=== PATIENT | male | born 2000 | race African-American/Black ===

== ENCOUNTER 2020-05-16 10:51 | Emergency (ER) | payer BC, SELFPAY ==
--- NOTE | 2020-05-16 11:51 | RAD REPORT ---
EXAM DESCRIPTION: RAD - Ankle Right 3 View - 05/16/2020 11:32 am CLINICAL HISTORY: Right ankle pain FINDINGS: No fracture or dislocation is seen. Lateral soft tissue swelling
--- OUTSIDE RECORDS SUMMARY | 2020-05-16 12:08 | XMS REPORT | Continuity of Care Document ---
:2000 Author Organization [facility] Address [address] [place] [address] Dr. Booth. [address] [place] [id number] Care Team Providers Name Role Phone DR JOSE Attending Clinician Unavailable DR JOSE Admitting Clinician Unavailable Problems This patient has no known problems. Allergies, Adverse Reactions, Alerts This patient has no known allergies or adverse reactions. Medications This patient has no known medications. Procedures This patient has no known procedures. Encounters Start End Encounter Admission Attending Care Care Encounter Source Date/Time Date/Time Type Type Clinicians Facility Department ID 2019-12-16 2019-12-16 Emergency E NAS GARCIA [facility] [id number] [facility] 11:59:00 13:00:00 [facility] Results This patient has no known results.
--- NOTE | 2020-05-16 12:53 | EDPHYS ---
Physician Documentation [facility] Name: Vandana Wood Age: 20 yrs Sex: Male : 2000 Arrival Date: 05/16/2020 Time: 10:52 Bed 6 Private MD: ED Physician Pawan Kahn HPI: 05/16 11:05 This 20 yrs old Black Male presents to ER via Wheelchair with complaints of Ankle jmm Injury. 11:05 Onset: The symptoms/episode began/occurred acutely, just prior to arrival. Modifying jmm factors: The symptoms are alleviated by elevation of extremity, the symptoms are aggravated by weight bearing, movement. This is a 20 year old male with no chronic medical conditions that presents to the ED with complaints of right ankle pain beginning yesterday after twisting his ankle playing football. States pain is worse with weightbearing. . Historical: - Allergies: 11:01 No Known Allergies; ca1 - Home Meds: 11: None [Active]; ca1 - PMHx: 11: None; ca1 - PSHx: 11: None; ca1 - Immunization history:: Adult Immunizations up to date. - Social history:: Smoking status: Patient denies any tobacco usage or history of. ROS: 11:05 Constitutional: Negative for fever, chills, and weight loss, Cardiovascular: Negative jmm for chest pain, palpitations, and edema, Respiratory: Negative for shortness of breath, cough, wheezing, and pleuritic chest pain. 11:05 MS/extremity: Positive for injury or acute deformity, pain. 11:05 All other systems are negative. Exam: 11:05 Constitutional: This is a well developed, well nourished patient who is awake, alert, jmm and in no acute distress. Head/Face: atraumatic. Eyes: EOMI, no conjunctival erythema appreciated ENT: Moist Mucus Membranes Neck: Trachea midline, Supple Chest/axilla: Normal chest wall appearance and motion. Cardiovascular: Regular rate and rhythm. No edema appreciated Respiratory: Normal respirations, no respiratory distress appreciated Abdomen/GI: Non distended, soft Back: Normal ROM Skin: General appearance color normal 11:05 Neuro: Awake and alert, normal gait Psych: Behavior is normal, Mood is normal, Patient is cooperative and pleasant 11:05 Musculoskeletal/extremity: swelling noted to the right lateral ankle, no pain on palpation of the right 5th metatarsal, full dorsalis pylse compartments are soft, NVI. Vital Signs: 11:00 BP 133 / 71; Pulse 80; Resp 16 S; Temp 99.2(TE); Pulse Ox 98% on R/A; Weight 81.65 kg ca1 (R); Height 5 ft. 10 in. (177.80 cm) (R); Pain 5/10; 12:52 BP 120 / 93; Pulse 67; Resp 17; Temp 98.9; Pulse Ox 100% ; bp 11:00 Body Mass Index 25.83 (81.65 kg, 177.80 cm) ca1 MDM: 11:05 Patient medically screened. [facility] 12:51 Data reviewed: vital signs, nurses notes. Counseling: I had a detailed discussion with [facility] the patient and/or guardian regarding: the historical points, exam findings, and any diagnostic results supporting the discharge/admit diagnosis, radiology results, the need for outpatient follow up, to return to the emergency department if symptoms worsen or persist or if there are any questions or concerns that arise at home. ED course: Patient is advised to follow up with pcp for reevaluation. Patient is otherwise given strict return precautions. Patient understood and agrees with the plan of care. . 05/16 11:05 Order name: Ankle Right 3 View XRAY; Complete Time: 11:53 bp 05/16 11:53 Order name: Oliverio wrap-joint; Complete Time: 12:52 [facility] 05/16 12:26 Order name: Crutches; Complete Time: 12:52 [facility] Administered Medications: No medications were administered Disposition: 16:06 Co-signature as Attending Physician, Pawan Kahn MD. rn Disposition: 05/16/20 12:53 Discharged to Home. Impression: Sprain of ankle. - Condition is Stable. - Discharge Instructions: Ankle Sprain. - Medication Reconciliation Form, Thank You Letter, Antibiotic Education, Prescription Opioid Use form. - Follow up: Private Physician; When: 2 - 3 days; Reason: Recheck today's complaints, Continuance of care, Re-evaluation by your physician. Signatures: Dispatcher [employer] EDMS Kurt Gentile PA PA jmm Nieto, Roman, MD MD rn Peltier, Brian, RN RN bp Rosemarie Arora RN RN ca1 Corrections: (The following items were deleted from the chart) 13:02 12:53 05/16/2020 12:53 Discharged to Home. Impression: Sprain of ankle. Condition is bp Stable. Forms are Medication Reconciliation Form, Thank You Letter, Antibiotic Education, Prescription Opioid Use. Follow up: Private Physician; When: 2 - 3 days; Reason: Recheck today's complaints, Continuance of care, Re-evaluation by your physician. cherelle
--- NOTE | 2020-05-16 12:53 | ER ---
Nurse's Notes [facility] Name: Vandana Wood Age: 20 yrs Sex: Male : 2000 Arrival Date: 05/16/2020 Time: 10:52 Bed 6 Private MD: Diagnosis: Sprain of ankle Presentation: 05/16 11:00 Chief complaint: Patient states: Twisted R ankle last night. C/O R ankle pain, worst ca1 with weight bearing. Coronavirus screen: Proceed with normal triage. Patient denies a cough. Patient denies shortness of breath or difficulty breathing. Patient denies measured and/or subjective temperature greater than 100.4F prior to today's visit. Patient denies travel on a cruise ship or to a country the [facility] currently lists as an affected area. Patient denies contact with known and/or suspected case of COVID-19. Ebola Screen: Patient negative for fever greater than or equal to 101.5 degrees Fahrenheit, and additional compatible Ebola Virus Disease symptoms Patient denies exposure to infectious person. Patient denies travel to an Ebola-affected area in the 21 days before illness onset. No symptoms or risks identified at this time. Initial Sepsis Screen: Does the patient meet any 2 criteria? No. Patient's initial sepsis screen is negative. Does the patient have a suspected source of infection? No. Patient's initial sepsis screen is negative. Risk Assessment: Do you want to hurt yourself or someone else? Patient reports no desire to harm self or others. Onset of symptoms was May 16, 2020. 11:00 Method Of Arrival: Wheelchair ca1 11:00 Acuity: JAVON 4 ca1 Triage Assessment: 11:00 General: Appears in no apparent distress. uncomfortable, Behavior is calm, cooperative, bp appropriate for age. Pain: Complains of pain in anterior aspect of right ankle. EENT: No deficits noted. Neuro: No deficits noted. Cardiovascular: No deficits noted. Respiratory: No deficits noted. GI: No signs and/or symptoms were reported involving the gastrointestinal system. : No signs and/or symptoms were reported regarding the genitourinary system. Derm: No deficits noted. Musculoskeletal: Reports pain in right ankle. Historical: - Allergies: : No Known Allergies; ca1 - Home Meds: : None [Active]; ca1 - PMHx: 11:01 None; ca1 - PSHx: 11:01 None; ca1 - Immunization history:: Adult Immunizations up to date. - Social history:: Smoking status: Patient denies any tobacco usage or history of. Screenin:00 Abuse screen: Denies threats or abuse. Denies injuries from another. Nutritional bp screening: No deficits noted. Tuberculosis screening: No symptoms or risk factors identified. Fall Risk None identified. Assessment: 11:00 General: SEE TRIAGE NOTE. bp 12:52 Reassessment: PT D/C HOME AMBULATORY ON CRUTCHES, DX WITH R ANKLE SPRAIN. bp Vital Signs: 11:00 BP 133 / 71; Pulse 80; Resp 16 S; Temp 99.2(TE); Pulse Ox 98% on R/A; Weight 81.65 kg ca1 (R); Height 5 ft. 10 in. (177.80 cm) (R); Pain 5/10; 12:52 BP 120 / 93; Pulse 67; Resp 17; Temp 98.9; Pulse Ox 100% ; bp 11:00 Body Mass Index 25.83 (81.65 kg, 177.80 cm) ca1 ED Course: 10:52 Patient arrived in ED. ag5 10:54 Kurt Gentile PA is PHCP. [facility] 10:54 Pawan Kahn MD is Attending Physician. [facility] 10:58 Brian Kirby, NELLY is Primary Nurse. bp 11:00 Patient has correct armband on for positive identification. Bed in low position. Call bp light in reach. Side rails up X2. 11:01 Triage completed. ca1 11:01 Arm band placed on right wrist. ca1 11:28 Ankle Right 3 View XRAY In Process Unspecified. EDMS 12:52 Crutch training done. Oliverio wrap to right ankle. bp 12:53 No provider procedures requiring assistance completed. Patient did not have IV access bp during this emergency room visit. Administered Medications: No medications were administered Outcome: 12:53 Discharge ordered by . jmm 12:54 Discharged to home ambulatory, with crutches. bp 12:54 Condition: stable 12:54 Discharge instructions given to patient, Instructed on discharge instructions, follow up and referral plans. crutch walking, Demonstrated understanding of instructions, follow-up care, crutch walking. 13:02 Patient left the ED. bp Signatures: Dispatcher [employer] EDMS Mickail, Kurt, PA PA jmm Kofi, , RN RN bp Rosemarie Arora RN RN [facility] Nura Gupta [facility]
[2020-05-16 13:09] VITALS: BP 120/93; TEMP 98.9; O2SAT 100
== END 2020-05-16 13:02 | disposition home or self-care (01) ==
LOC: ER 10:51
DX: S93.401A Sprain of unspecified ligament of right ankle, initial encounter (principal); Y93.61 Activity, american tackle football; Y92.9 Unspecified place or not applicable
CPT/HCPCS: 99283

== ENCOUNTER 2020-06-20 14:35 | Emergency (ER) | payer SELFPAY ==
--- OUTSIDE RECORDS SUMMARY | 2020-06-20 14:37 | XMS REPORT | Continuity of Care Document ---
:2000 Author Organization [facility] t Address [address] [place] [address] Dr. Booth. [address] [place] [address] Care Team Providers Name Role Phone DR [...] ID 2019-12-16 2019-12-16 Emergency E [facility] [id number] 13:00:00 [facility] Results This patient has no known results.
--- NOTE | 2020-06-20 15:43 | ER ---
Nurse's Notes [facility] Name: Vandana Wood Age: 20 yrs Sex: Male : 2000 Arrival Date: 06/20/2020 Time: 14:39 Bed 28 Private MD: Diagnosis: Urethritis and urethral syndrome Presentation: 06/20 14:51 Chief complaint: Patient states: Sexual partner was diagnosed with chlamydia. Came to [facility] get checked and treated. No pain or major symptoms reported. Coronavirus screen: Client denies travel out of the [place] in the last 14 days. At this time, the client does not indicate any symptoms associated with coronavirus-19. Ebola Screen: Patient denies travel to an Ebola-affected area in the 21 days before illness onset. Initial Sepsis Screen: Does the patient meet any 2 criteria? No. Patient's initial sepsis screen is negative. Risk Assessment: Do you want to hurt yourself or someone else? Patient reports no desire to harm self or others. Onset of symptoms was June 20, 2020. 14:51 Method Of Arrival: Ambulatory [facility] 14:51 Acuity: JAVON 5 1 17:55 Initial Sepsis Screen: Does the patient have a suspected source of infection? No. ls4 Patient's initial sepsis screen is negative. Historical: - Allergies: 14:54 No Known Allergies; ll1 - PSHx: 14:54 right hand surgery; 1 - Immunization history:: Flu vaccine status is unknown. - Social history:: Smoking status: Patient denies any tobacco usage or history of. Patient uses alcohol, only on a social basis. Patient/guardian denies using street drugs. Screenin:30 Abuse screen: Denies threats or abuse. Denies injuries from another. ls4 15:30 Nutritional screening: No deficits noted. Tuberculosis screening: No symptoms or risk ls4 factors identified. Fall Risk None identified. Assessment: 15:30 Pain: Denies pain. ls4 15:30 General: Appears in no apparent distress. comfortable, Behavior is calm, cooperative. ls4 Neuro: No deficits noted. Cardiovascular: No deficits noted. Respiratory: No deficits noted. GI: No deficits noted. : No deficits noted. Vital Signs: 14:51 BP 135 / 88; Pulse 78; Resp 18; Temp 98.4; Pulse Ox 100% ; Weight 81.65 kg; Height 5 ll1 ft. 10 in. (177.80 cm); Pain 0/10; 17:56 BP 122 / 74; Pulse 72; Resp 16; Temp 98.4(O); Pulse Ox 99% on R/A; Pain 0/10; ls4 14:51 Body Mass Index 25.83 (81.65 kg, 177.80 cm) ll1 ED Course: 14:39 Patient arrived in ED. rg4 14:53 Triage completed. ll1 14:54 Patient placed Patient notified of wait time. ll1 15:30 No apparent distress. ls4 15:30 Patient has correct armband on for positive identification. Bed in low position. Call ls4 light in reach. Side rails up X 1. Pulse ox on. NIBP on. Verbal reassurance given. 15:30 No provider procedures requiring assistance completed. Patient did not have IV access ls4 during this emergency room visit. 15:40 Patient Not in lobby when called to ER room for eval. ll1 15:40 Patient Not in lobby when called to room for eval. ll1 16:09 Chalo Robert MD is Attending Physician. kdr 16:40 Bettie Hardin, RN is Primary Nurse. iw 17:04 GC (GONORR/CHLAMYDIA) Probe Sent. iw Administered Medications: No medications were administered Outcome: 15:30 Discharged to home ambulatory. ls4 15:30 Condition: good 15:30 Discharge instructions given to patient, Instructed on discharge instructions, follow up and referral plans. Demonstrated understanding of instructions, follow-up care, medications, Prescriptions given X 1. 15:41 Patient left the ED. ll1 17:41 Discharge ordered by . kdr 17:56 Patient left the ED. ls4 Signatures: Chalo Robert MD MD kdr Bettie Hardin, RN RN iw Patricia Manzo rg4 Anu Singh RN RN ls4 Enrrique Montanez RN RN ll1 Corrections: (The following items were deleted from the chart) 17:56 15:30 Discharge instructions given to patient, Instructed on discharge instructions, ls4 follow up and referral plans. Demonstrated understanding of instructions, follow-up care, medications, ls4
[2020-06-20 16:17] VITALS: TEMP 98.4
--- NOTE | 2020-06-20 17:41 | EDPHYS ---
Physician Documentation [facility] Name: aVndana Wood Age: 20 yrs Sex: Male : 2000 Arrival Date: 06/20/2020 Time: 14:39 Bed 28 Private MD: ED Physician Chalo Robert HPI: 06/21 12:45 This 20 yrs old Black Male presents to ER via Ambulatory with complaints of STD kdr Exposure. 12:45 The patient presents with a known STD exposure, a possible STD exposure, the patient kdr has no apparent symptoms. Onset: The symptoms/episode began/occurred at an unknown time. Modifying factors: The symptoms are alleviated by nothing, the symptoms are aggravated by nothing. Associated signs and symptoms: The patient has no apparent associated signs or symptoms. Severity of symptoms: At their worst the symptoms were very mild, in the emergency department the symptoms are unchanged. The patient has not experienced similar symptoms in the past. The patient has not recently seen a physician. His sexual partner of last week informed him that she tested positive for chlamydia . Historical: - Allergies: 06/20 14:54 No Known Allergies; ll1 - PSHx: 14:54 right hand surgery; ll1 - Immunization history:: Flu vaccine status is unknown. - Social history:: Smoking status: Patient denies any tobacco usage or history of. Patient uses alcohol, only on a social basis. Patient/guardian denies using street drugs. ROS: 06/21 12:45 Constitutional: Negative for fever, chills, and weight loss, Eyes: Negative for injury, kdr pain, redness, and discharge, ENT: Negative for injury, pain, and discharge, Neck: Negative for injury, pain, and swelling, Cardiovascular: Negative for chest pain, palpitations, and edema, Respiratory: Negative for shortness of breath, cough, wheezing, and pleuritic chest pain, Abdomen/GI: Negative for abdominal pain, nausea, vomiting, diarrhea, and constipation, Back: Negative for injury and pain, MS/Extremity: Negative for injury and deformity, Skin: Negative for injury, rash, and discoloration, Neuro: Negative for headache, weakness, numbness, tingling, and seizure activity. Psych: Negative for depression, anxiety, suicide ideation, homicidal ideation, and hallucinations, Allergy/Immunology: Negative for hives, rash, and allergies, Endocrine: Negative for neck swelling, polydipsia, polyuria, polyphagia, and marked weight changes, Hematologic/Lymphatic: Negative for swollen nodes, abnormal bleeding, and unusual bruising. : Positive for No focal issues - has vague sense that something is not right with his genetailia. Exam: 12:45 Constitutional: This is a well developed, well nourished patient who is awake, alert, kdr and in no acute distress. Head/Face: Normocephalic, atraumatic. Eyes: Pupils equal round and reactive to light, extra-ocular motions intact. Lids and lashes normal. Conjunctiva and sclera are non-icteric and not injected. Cornea within normal limits. Periorbital areas with no swelling, redness, or edema. ENT: Nares patent. No nasal discharge, no septal abnormalities noted. Tympanic membranes are normal and external auditory canals are clear. Oropharynx with no redness, swelling, or masses, exudates, or evidence of obstruction, uvula midline. Mucous membranes moist. Neck: Trachea midline, no thyromegaly or masses palpated, and no cervical lymphadenopathy. Supple, full range of motion without nuchal rigidity, or vertebral point tenderness. No Meningismus. Chest/axilla: Normal chest wall appearance and motion. Nontender with no deformity. No lesions are appreciated. Cardiovascular: Regular rate and rhythm with a normal S1 and S2. No gallops, murmurs, or rubs. Normal PMI, no JVD. No pulse deficits. Respiratory: Lungs have equal breath sounds bilaterally, clear to auscultation and percussion. No rales, rhonchi or wheezes noted. No increased work of breathing, no retractions or nasal flaring. Abdomen/GI: Soft, non-tender, with normal bowel sounds. No distension or tympany. No guarding or rebound. No evidence of tenderness throughout. Back: No spinal tenderness. No costovertebral tenderness. Full range of motion. Skin: Warm, dry with normal turgor. Normal color with no rashes, no lesions, and no evidence of cellulitis. MS/ Extremity: Pulses equal, no cyanosis. Neurovascular intact. Full, normal range of motion. Neuro: Awake and alert, GCS 15, oriented to person, place, time, and situation. Cranial nerves II-XII grossly intact. Motor strength 5/5 in all extremities. Sensory grossly intact. Cerebellar exam normal. Normal gait. Psych: Awake, alert, with orientation to person, place and time. Behavior, mood, and affect are within normal limits. 12:45 : CVA tenderness, is absent, Male external genitalia: normal, no abrasion, no discharge, no erythema, no injury, no swelling, no tenderness, no evidence of ulceration, Sexual behavior: the patient is sexually active, and reports a single partner. Vital Signs: 06/20 14:51 BP 135 / 88; Pulse 78; Resp 18; Temp 98.4; Pulse Ox 100% ; Weight 81.65 kg; Height 5 ll1 ft. 10 in. (177.80 cm); Pain 0/10; 17:56 BP 122 / 74; Pulse 72; Resp 16; Temp 98.4(O); Pulse Ox 99% on R/A; Pain 0/10; ls4 14:51 Body Mass Index 25.83 (81.65 kg, 177.80 cm) ll1 MDM: 17:41 Patient medically screened. kdr 06/21 12:45 Data reviewed: vital signs, nurses notes, lab test result(s). Counseling: I had a kdr detailed discussion with the patient and/or guardian regarding: the historical points, exam findings, and any diagnostic results supporting the discharge/admit diagnosis, lab results, the need for outpatient follow up. 06/20 16:23 Order name: Urine Dipstick--Ancillary (enter results) iw 06/20 16:57 Order name: GC (GONORR/CHLAMYDIA) Probe iw Administered Medications: No medications were administered Disposition: 06/20/20 17:41 Discharged to Home. Impression: Urethritis and urethral syndrome. - Condition is Stable. - Discharge Instructions: Urethritis, Adult. - Prescriptions for Cipro 500 mg Oral Tablet - take 1 tablet by ORAL route every 12 hours for 7 days; 14 tablet. - Medication Reconciliation Form, Thank You Letter, Antibiotic Education form. - Follow up: Private Physician; When: 2 - 3 days; Reason: If symptoms return, Further diagnostic work-up, Recheck today's complaints, Continuance of care, Re-evaluation by your physician. - Problem is new. - Symptoms are unchanged. Signatures: Dispatcher [employer] EDChalo Hernandez MD MD kdr Stewart, Lisa, RN RN ls4 Enrrique Montanez, RN RN ll1 Corrections: (The following items were deleted from the chart) 06/20 16:10 15:41 06/20/2020 15:41 Patient left the facility post triage evaluation and consult. ll1 Reason stated they are leaving due to unknown. ll1 16:10 16:10 06/20/2020 15:41 Patient left the facility post triage evaluation and consult. ll1 Reason stated they are leaving due to (see nurse's notes). ll1 17:56 17:41 06/20/2020 17:41 Discharged to Home. Impression: Urethritis and urethral ls4 syndrome. Condition is Stable. Forms are Medication Reconciliation Form, Thank You Letter, Antibiotic Education, Prescription Opioid Use. Follow up: Private Physician; When: 2 - 3 days; Reason: If symptoms return, Further diagnostic work-up, Recheck today's complaints, Continuance of care, Re-evaluation by your physician. Problem is new. Symptoms are unchanged. kdr
[2020-06-20 18:03] VITALS: BP 122/74; O2SAT 99
[2020-06-20 20:41] LABS: Urine Blood TRACE (NEG); Urine Glucose NEGATIVE (NEG); Urine Protein NEGATIVE (NEG)
[2020-06-25 09:50] LABS: C.trachomatis RNA,TMA Detected (Not Detected)
== END 2020-06-20 17:56 | disposition home or self-care (01) ==
LOC: ER 14:35
DX: N34.2 Other urethritis (principal); N34.3 Urethral syndrome, unspecified
CPT/HCPCS: 81003; 87490; 87590; 99283